=== PATIENT | female | born 1950 | race Caucasian/White ===

== ENCOUNTER 2021-03-21 03:46 | Outpatient (CLI) | payer OTHER, SELFPAY ==
[2021-03-21 16:00] LABS: Abs Immature Grans 0.01 10^3/uL (0.0-0.06); Absolute Basophil Count 0.02 10^3/uL (0.0-0.2); Absolute Lymphocyte Count 2.62 10^3/uL (1.2-3.4); Absolute Monocyte Count 0.47 10^3/uL (0.1-0.8); Basophils % 0.3; Eosinophils % 1.4; HCT 42.8 % (36.0-46.0); HGB 13.5 g/dL (11.2-15.7); Immature Grans % 0.1; Lymphocytes % 35.8; MCHC 31.5 % (32.0-36.0); Monocytes % 6.4; Nucleated RBC 0 %; Platelet Count 227 10^3/uL (130-400); RBC 4.65 10^6/uL (3.93-5.22); RDW 13.9 % (11.7-14.6); RDW-SD 47.2 fL; WBC 7.32 10^3/uL (4.4-10.8)
[2021-03-21 16:02] LABS: ESR 7 mm/hr (0-30)
[2021-03-21 17:20] LABS: ALT 21 U/L (14-59); AST 14 U/L (15-37); Alkaline Phosphatase 76 U/L (46-116); Anion Gap 7.8 mmol/L (3-11); BUN 17 mg/dL (7-18); Bilirubin, Total 0.4 mg/dL (0.2-1.0); C-Reactive Protein 0.11 mg/dL (0.0-0.3); CO2 30.2 mmol/L (21.0-32.0); CREATININE 1.1 mg/dL (0.55-1.02); Calcium 9.1 mg/dL (8.5-10.1); Chloride 106 mmol/L (98-107); Glucose 89 mg/dL (74-106); Magnesium 2.3 mg/dL (1.8-2.4); PHOSPHORUS 3.8 mg/dL (2.6-4.7); Potassium 4.3 mmol/L (3.5-5.1); Sodium 144 mmol/L (136-145); TSH (W/Ref FT4) 3.43 uIU/mL (0.36-3.74); Total Protein 7.4 g/dL (6.4-8.2)
[2021-03-22 13:57] LABS: FREE T4 0.87 ng/dL (0.76-1.46)
[2021-03-22 16:28] LABS: Rheumatoid Factor <8.6 IU/mL (<12.0)
[2021-03-23 10:37] LABS: Lyme Ab w Rflx to Lyme Confirm Negative (Negative)
[2021-03-23 12:59] LABS: Albumin 61.3 % (55.8-66.1); Total Protein 7.2 g/dL (6.3-8.2)
[2021-03-23 16:11] LABS: ANA Interpretation Positive (Negative)
== END 2021-03-21 03:47 | disposition home or self-care (01) ==
DX: M79.7 Fibromyalgia (principal)
CPT/HCPCS: 36415; 80053; 85652; 83735; 84100; 84165; 84439; 84443; 85025; 86038; 86140; 86431; 86618

== ENCOUNTER → 2021-07-14 01:40 | Outpatient (CLI) | payer MEDICARE, MEDICAID, SELFPAY ==
--- NOTE | 2021-07-14 12:56 | DI.RAD_ITS ---
Exam(s) XR ABDOMEN FLAT PLATE EXAM: XR ABDOMEN FLAT PLATE CLINICAL HISTORY: ABD PAIN R10.9, R/O KIDNEY STONES. TECHNIQUE: 2D digital imaging was performed. COMPARISON: No exams were available for comparison FINDINGS: AP supine view of the abdomen-pelvis reveals a nonspecific bowel gas pattern in the supine position. No obvious bowel obstruction. Fecal material seen throughout the colon judged as moderate amount. Phlebolith noted in left side of the pelvis. Two small calcific densities seen in the right upper qu adrant above the 12th rib. These may be in the right kidney or gallbladder. No calcifications seen on the left side. There are surgical clips seen in the pelvis. Regional bones unremarkable. IMPRESSION: DATA REPOSITORY: RADIATION DOSE DELIVERED:
--- NOTE | 2021-07-14 12:56 | DI.RAD_ITS ---
Exam(s) XR LUMBAR SPINE COMP W FLEX/EX EXAM: XR LUMBAR SPINE COMP W FLEX/EX CLINICAL HISTORY: LOW BACK PAIN M54.50 R/O FX, METASTASIS. TECHNIQUE: 2D digital imaging was performed. COMPARISON: No exams were available for comparison FINDINGS: There is no evidence of fracture or listhesis. No pars defects. No significant disc space narrowing . No prominent scoliosis. Sacroiliac joints appear unremarkable. No osseous lesions. IMPRESSION: DATA REPOSITORY: RADIATION DOSE DELIVERED:
== END ==
PROVIDERS: Visit Provider Pain Medicine Interventional Pain Medicine
DX: R10.9 Unspecified abdominal pain (principal); M54.50 Low back pain, unspecified
CPT/HCPCS: 72114; 74018

== ENCOUNTER 2021-07-14 11:50 | Outpatient (CLI) | payer MEDICARE, MEDICAID, SELFPAY ==
[2021-07-14 13:26] LABS: Abs Immature Grans 0.01 10^3/uL (0.0-0.06); Absolute Basophil Count 0.01 10^3/uL (0.0-0.2); Absolute Eosinophil Count 0.08 10^3/uL (0.0-0.7); Absolute Lymphocyte Count 1.84 10^3/uL (1.2-3.4); Absolute Monocyte Count 0.38 10^3/uL (0.1-0.8); Absolute Neutrophil Count 3.12 10^3/uL (1.2-6.7); Basophils % 0.2; Eosinophils % 1.5; HCT 40.3 % (36.0-46.0); HGB 13.1 g/dL (11.2-15.7); Immature Grans % 0.2; Lymphocytes % 33.8; MCH 29.4 pg (27.0-33.0); MCHC 32.5 % (32.0-36.0); MCV 90.4 fL (80-95); MPV 10.6 fL (8.0-11.0); Neutrophils % 57.3; Nucleated RBC 0 %; Platelet Count 204 10^3/uL (130-400); RBC 4.46 10^6/uL (3.93-5.22); RDW 13.4 % (11.7-14.6); WBC 5.44 10^3/uL (4.4-10.8)
[2021-07-14 14:26] LABS: ALT 18 U/L (14-59); AST 13 U/L (15-37); Albumin 3.8 g/dL (3.4-5.0); Alkaline Phosphatase 75 U/L (46-116); Anion Gap 4.8 mmol/L (3-11); BUN 14 mg/dL (7-18); Bilirubin, Total 0.5 mg/dL (0.2-1.0); CO2 33.2 mmol/L (21.0-32.0); CREATININE 0.8 mg/dL (0.55-1.02); Calcium 9.2 mg/dL (8.5-10.1); Chloride 102 mmol/L (98-107); Glucose 93 mg/dL (74-106); Potassium 4.6 mmol/L (3.5-5.1); Sodium 140 mmol/L (136-145)
== END 2021-07-14 11:51 | disposition home or self-care (01) ==
LOC: LBO 07-15 11:54
PROVIDERS: Visit Provider Pain Medicine Interventional Pain Medicine
DX: R10.9 Unspecified abdominal pain (principal)
CPT/HCPCS: 36415; 80053; 85025

== ENCOUNTER → 2021-08-16 00:55 | Outpatient (CLI) | payer MEDICARE, MEDICAID, SELFPAY ==
--- NOTE | 2021-08-16 | DI.US_ITS ---
Exam(s) US ABDOMEN LIMITED EXAM: US ABDOMEN LIMITED CLINICAL HISTORY: ABD PAIN, R10.9 TECHNIQUE: Ultrasound performed using standard protocol. COMPARISON: No exams were available for comparison FINDINGS: Patient states that she has a known benign pancreatic head mass, there is a questionable hypoechoic a jeffrey in the pancreatic head measuring about 19 x 11 x 17 millimeters, this is not ideally visualized d ue to overlying bowel gas. MR examination of the pancreas would be more accurate in identifying and characterizing a pancreatic head mass. Otherwise the pancreas is unremarkable in appearance except f or mildly dilated pancreatic duct at 5 millimeters. Liver is unremarkable in appearance. There is no cholelithiasis or biliary dilatation. Right kidney contains an approximately 4 millimeter in diameter nonobstructing stone in the mid to inferior pole. IMPRESSION: No evidence of cholelithiasis. Nonobstructing right renal calculus noted. Possible pancreatic head mass, reportedly known according to the patient. We will attempt to obtain prior examinations for comparison. Pancreatic MRI would be recommended for evaluation of possible pa ncreatic head mass if prior studies cannot be obtained or are non contributory. DATA REPOSITORY:
== END ==
PROVIDERS: Visit Provider Pain Medicine Interventional Pain Medicine
DX: R10.9 Unspecified abdominal pain (principal); N20.0 Calculus of kidney
CPT/HCPCS: 76705

== ENCOUNTER 2021-10-19 00:32 | Outpatient (CLI) | payer MEDICARE, MEDICAID, SELFPAY ==
--- NOTE | 2021-10-19 14:00 | DI.US_ITS ---
Exam(s) US THYROID EXAM: US THYROID CLINICAL HISTORY: NONTOXIC SINGLE THYROID NODULE, E04.1, PALPABLE IN LT NECK. TECHNIQUE: Ultrasound thyroid performed using standard protocol. COMPARISON: US US ABDOMEN LIMITED from 08/16/2021 FINDINGS: Both thyroid lobes as well as the isthmus exhibit normal size and normal echo architecture with the e xception of the focal findings described below. RIGHT THYROID LOBE: Exhibits normal size, measuring 0.9 cm AP x 0.8 cm wide by 4 cm craniocaudal. Th ere are 3 benign small findings in the right lobe, all having the appearance of benign colloid cysts, the largest measuring 4 millimeters. There are no concerning solid nodules in the right lobe. ISTHMUS: Normal thickness. There are no nodules in the isthmus. LEFT THYROID LOBE: Exhibits normal size. Measures 0.7 cm AP x 1.1 wide x 3.6 cm craniocaudal There 3 findings in the left lobe. In the mid and inferior aspects there are 2 small benign colloid cysts, the larger measuring 4 millimeter. Towards the superior aspect of the left lobe there is a well-defined solid nodule measuring 9 x 6 x 8 millimeters. This nodule is solid (2 points) This nodule is relatively isoechoic compared surrounding parenchyma (1 point) In the transverse plane this nodule is wider than taller (0 points) Margins are smooth (0 points) This nodule does not contain punctate echogenic foci nor other calcifications (0 point) Therefore, total points for this nodule =3 and therefore this nodule registers as a TiRads 3 This does not require biopsy as it measures less than 1.5 cm. It can be followed in 1 year LYMPH NODES: There is no significant adenopathy. IMPRESSION: 1. Thyroid gland is not enlarged. 2. There are few small bilateral benign colloid cysts, the largest measuring 4 millimeters. 3. There is a single solid nodule which is in the upper half of the left thyroid lobe which measures 9 x 6 x 8 millimeter and which classifies as a TiRads 3 nodule and can be followed with repeat ultras ound in 1 year. 4. There is no significant adenopathy DATA REPOSITORY:
== END 2021-10-19 00:52 ==
PROVIDERS: Visit Provider Pain Medicine Interventional Pain Medicine
DX: E04.1 Nontoxic single thyroid nodule (principal); E07.89 Other specified disorders of thyroid
CPT/HCPCS: 76536

== ENCOUNTER 2021-11-07 00:18 | Outpatient (CLI) | payer MEDICARE, MEDICAID, SELFPAY ==
--- NOTE | 2021-11-07 | DI.MRI_ITS ---
Exam(s) MR ABDOMEN WO EXAM: MR ABDOMEN WO CLINICAL HISTORY: CYST OF PANCREAS,F/U ABNL IMAGING,R93.5,PANCREATIC MASS,K86.2 TECHNIQUE: Multiplanar multisequence MRI was performed with both pre and post contrast infused seque nces. Contrast injected sequences were performed following IV injection of cc of Dotarem. 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 This study was performed without IV contrast, apparently as per request. VISUALIZED LUNG BASES: No pleural effusions evident. There is no ascites evident in the upper abdomen. LIVER: Liver size is normal. There is a small benign 7 millimeters cyst in the most superior aspect of the liver just anterior to the uppermost intrahepatic IVC. This is unchanged from the 2012 CT sca n. There are no other cysts nor more ominous hepatic lesions identified. BILIARY: There is no obvious gallbladder pathology. No gallbladder stones nor gallbladder wall edema . Gallbladder lumen size is similar to 2012. The CBD is not dilated, measuring 6 millimeters.No sig nificant dilatation of intrahepatic ducts. PANCREAS: The previously described cystic pancreatic head mass is again noted and is associated with dilated pancreatic duct which is dilated out to the tail and measures up to 4.3 millimeters. On MRCP images pancreatic duct appears continuous with this mass. The mass is comprised of multiple clear c ystic components with the largest component measuring 1.4 x 1.4 cm and with total measurement being 2 .1 cm AP by 2.5 cm wide by 3.5 cm craniocaudal. The adjacent lower CBD measures 5 millimeter. Altho ugh does somewhat difficult to compare the MRI to a prior CT scan, it does appear that this mass has somewhat increased in size when compared to 10 years ago (April 2012). There does not appear to be obvious regional adenopathy. Stomach and adjacent duodenum appear unremarkable. No new mesenteric masses seen in the field of vie w. SPLEEN: Spleen is not enlarged and there are no intrasplenic lesions.Splenic and portal veins are pat ent ADRENALS: There are no significant adrenal masses. KIDNEYS: No solid renal masses. No hydronephrosis.Tiny cyst in the posterior cortex of the right kid hernesto measuring 4 millimeter is unchanged from 2012 ABDOMINAL AORTA: Not enlarged and there is no significant para-aortic adenopathy. ANTERIOR ABDOMINAL WALL/GI: There is no evidence of significant anterior abdominal wall hernia in the field of view of this study.Is no evidence of obvious bowel obstruction. OSSEOUS: There are no lytic osseous lesions in the field of view of this study. Visualized spinal canal within normal limits. IMPRESSION: 1. 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 There are no other focal lesions seen in the pancreas. No peripancreatic fluid melisa ections. No obvious regional lymphadenopathy and no evidence of obvious metastatic disease in the li devyn. There is a stable 7 millimeter benign cyst in the most superior aspect of the liver which is un changed from the prior 2012 CT scan. 2. CBD diameter remains upper normal and there is no dilatation of intrahepatic ducts. No evidence o f [place] gallbladder. DATA REPOSITORY:
== END 2021-11-07 00:38 ==
PROVIDERS: Visit Provider Pain Medicine Interventional Pain Medicine
DX: K86.2 Cyst of pancreas (principal); R93.5 Abnormal findings on diagnostic imaging of other abdominal regions, including retroperitoneum; K76.89 Other specified diseases of liver; K86.89 Other specified diseases of pancreas; R10.30 Lower abdominal pain, unspecified
CPT/HCPCS: 74181

== ENCOUNTER 2021-11-07 01:41 | Outpatient (CLI) | payer MEDICARE, MEDICAID, SELFPAY ==
[2021-11-07 15:10] LABS: Abs Immature Grans 0.02 10^3/uL (0.0-0.06); Absolute Basophil Count 0.02 10^3/uL (0.0-0.2); Absolute Eosinophil Count 0.06 10^3/uL (0.0-0.7); Absolute Lymphocyte Count 2.54 10^3/uL (1.2-3.4); Absolute Monocyte Count 0.52 10^3/uL (0.1-0.8); Absolute Neutrophil Count 3.11 10^3/uL (1.2-6.7); Basophils % 0.3; HCT 41.8 % (36.0-46.0); HGB 13.3 g/dL (11.2-15.7); Immature Grans % 0.3; Lymphocytes % 40.5; MCH 29.3 pg (27.0-33.0); MCHC 31.8 % (32.0-36.0); MCV 92.1 fL (80-95); MPV 10.5 fL (8.0-11.0); Monocytes % 8.3; Neutrophils % 49.6; Nucleated RBC 0 %; Platelet Count 207 10^3/uL (130-400); RBC 4.54 10^6/uL (3.93-5.22); RDW 13.5 % (11.7-14.6); RDW-SD 46.5 fL; WBC 6.27 10^3/uL (4.4-10.8)
[2021-11-07 16:05] LABS: Albumin 3.8 g/dL (3.4-5.0); Alkaline Phosphatase 84 U/L (46-116); BUN 18 mg/dL (7-18); Bilirubin, Total 0.5 mg/dL (0.2-1.0); CREATININE 0.8 mg/dL (0.55-1.02); Calcium 8.9 mg/dL (8.5-10.1); Glucose 90 mg/dL (74-106); PHOSPHORUS 3.7 mg/dL (2.6-4.7); Sodium 138 mmol/L (136-145)
[2021-11-07 16:06] LABS: ALT 23 U/L (14-59); AST 14 U/L (15-37); Anion Gap 5.1 mmol/L (3-11); Bilirubin, Direct 0.1 mg/dL (0.0-0.2); CO2 30.9 mmol/L (21.0-32.0); Chloride 102 mmol/L (98-107); Magnesium 2.3 mg/dL (1.8-2.4); Potassium 4.3 mmol/L (3.5-5.1); TSH 3.26 uIU/mL (0.36-3.74)
[2021-11-07 16:21] LABS: T4 8.7 ug/mL (4.7-13.3)
== END 2021-11-07 01:42 | disposition home or self-care (01) ==
LOC: LBO 01:42
PROVIDERS: Visit Provider Pain Medicine Interventional Pain Medicine
DX: R53.83 Other fatigue (principal)
CPT/HCPCS: 36415; 80053; 80076; 83735; 84100; 84436; 84443; 85025

== ENCOUNTER 2023-01-26 00:30 | Outpatient (CLI) | payer MEDICARE, MEDICAID, SELFPAY ==
--- NOTE | 2023-01-26 13:41 | DI.RAD_ITS ---
Exam(s) XR SHOULDER RT COMPLETE 2+V EXAM: XR SHOULDER RT COMPLETE 2+V CLINICAL HISTORY: RT SHOULDER PAIN,M25.511. TECHNIQUE: 2D digital imaging was performed. COMPARISON: No exams were available for comparison FINDINGS: Five views: No evidence of fracture or dislocation. No abnormal soft tissue densities in the subacromial space a nd the subacromial space does not appear diminished. There are mild degenerative changes glenohumera l joint. Os acromiale is noted. Clavicle appears unremarkable. Coracoid process unremarkable. IMPRESSION: Mild degenerative changes. Os acromiale evident. DATA REPOSITORY: RADIATION DOSE DELIVERED:
--- NOTE | 2023-01-26 13:41 | DI.RAD_ITS ---
Exam(s) XR CERVICAL SP COMP W FLEX/EXT EXAM: XR CERVICAL SP COMP W FLEX/EXT CLINICAL HISTORY: SEVERE NECK PAIN,RT,M54.2. TECHNIQUE: 2D digital imaging was performed. COMPARISON: No exams were available for comparison FINDINGS: Nine views: Is no evidence of acute fracture, listhesis, nor offset of the spinal laminar line. There is no list hesis with flexion and extension. There is moderate disc space narrowing at C5-6 level. The other disc spaces exhibit normal height. There are bilateral Luschka joint osteophytes at C5-6 level. Facet joints appear un remarkable with minimal degenerative changes. No cervical ribs evident. No osseous lesions. IMPRESSION: Evidence of degenerative disc disease at C5-6 level. DATA REPOSITORY: RADIATION DOSE DELIVERED:
== END 2023-01-26 00:50 ==
PROVIDERS: Visit Provider Pain Medicine Interventional Pain Medicine
DX: M50.322 Other cervical disc degeneration at C5-C6 level (principal); M25.511 Pain in right shoulder
CPT/HCPCS: 72052; 73030

== ENCOUNTER 2023-02-23 17:11 | Emergency (ER) | payer MEDICARE, MEDICAID, SELFPAY ==
[2023-02-23 17:13] VITALS: BP 136/67; PULSE 85; RESP 14; TEMP 36.8; O2SAT 100
--- NOTE | 2023-02-23 17:42 | ED.GENADUL_ITS ---
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 [place] [facility] [place] Medical Decision Making This is a 72-year-old female patient with a history of lymph node resection in her right groin area who presents with swelling and pain to the area consistent with previous infections. She states she typically gets Rocephin 1 g IM for 3 days with resolution of her symptoms. She presents here requesting that. Medical Records Medical records reviewed: Yes I reviewed the patient's medical records. HPI General Mode of arrival: ambulatory . Date/Time Provider Initiated Documentation: 02/23/23 17:19 . Limitations to Documentation: no limitations . Information obtained by: patient . HPI Narrative: This is a 72-year-old female patient on no medication with a past medical hist ory of lymph node resection many years ago reportedly in [facility] reportedly because they were continually inflamed who states post surgery she has had multiple flares that require treatment with ceftriaxone IM for 3 days. She states that this is a typical flare for her and presents here requesting ceftriaxone. She denies any fever chills nausea vomiting abdominal pain. She attributes her flare to strenuous work she did yesterday around her house. 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 MONTY: 4 Review of Systems All systems reviewed & are unremarkable except as noted in HPI and below PFSH All Active Problems (Updated 02/23/23 @ 17:50 by Jagruti Coleman, ZACH) Cellulitis (Acute) Social History Smoking risk assessment performed?: No Exam Const General: cooperative, healthy appearing, comfortable and no acute distress Nutritional Appearance: average body habitus Orientation: alert, awake and oriented x3 HENMT Head: normal to inspection, normocephalic and atraumatic Mouth: oral mucosae normal Chest Chest: normal inspection of the chest Resp Effort & Inspection: normal respiratory effort Cardio Rate: regular rate Rhythm: regular rhythm GI Inspection: normal to inspection External Female Exam: erythema, external swelling, lesion (Right labia with a swollen lesion slightly erythematous), no ecchymosis and other (No discharge or drainage) Skin Lesions: lesion noted Neuro General: patient alert, patient awake and patient oriented x3 Cognition: normal cognition Speech: speech normal Gait: normal gait Motor: muscle tone normal throughout Sensory Exam: no sensory deficits noted Extrem General: normal to inspection and full ROM Course Vital Signs Vital signs: Vital Signs Temperature 36.8 C 02/23/23 17:13 Pulse 85 02/23/23 17:13 Respiratory Rate 14 02/23/23 17:13 Blood Pressure 136/67 02/23/23 17:13 Pulse Oximetry 100 02/23/23 17:13 Temperature 36.8 C 02/23/23 17:13 Temperature Source Skin 02/23/23 17:13 Pulse 85 02/23/23 17:13 Respiratory Rate 14 02/23/23 17:13 Blood Pressure 136/67 02/23/23 17:13 Blood Pressure Position Sitting 02/23/23 17:13 Pulse Oximetry 100 02/23/23 17:13 Oxygen Delivery Method Room Air 02/23/23 17:13 Oxygen Flow Rate 0 02/23/23 17:13 Pain Level 7 02/23/23 17:13
[2023-02-23] MEDS: cefTRIAXone 1 GM VIAL IM (17:54)
== END 2023-02-23 18:44 | disposition home or self-care (01) ==
PROVIDERS: Emergency Provider Nurse Practitioner Acute Care
DX: L03.314 Cellulitis of groin (principal)
CPT/HCPCS: 96372; 99284; J0696

== ENCOUNTER 2023-02-24 12:27 | Outpatient (RCR) | payer MEDICARE, MEDICAID, SELFPAY ==
[2023-02-24] MEDS: Lidocaine 1% Multi-Dose 10 ML VIAL 2.1 ML IM (12:45)
[2023-02-24] MEDS: cefTRIAXone 1 GM VIAL IM (12:45)
== END 2023-02-24 12:28 | disposition home or self-care (01) ==
LOC: INF 12:27
PROVIDERS: Visit Provider Nurse Practitioner Acute Care
DX: L03.90 Cellulitis, unspecified (principal)
CPT/HCPCS: 96365; 96372; 96375; J0696

== ENCOUNTER 2023-02-25 12:01 | Outpatient (RCR) | payer MEDICARE, MEDICAID, SELFPAY ==
[2023-02-25] MEDS: cefTRIAXone 1 GM VIAL IM (13:45)
[2023-02-25] MEDS: Lidocaine 1% Multi-Dose 10 ML VIAL 2.1 ML IM (13:45)
== END 2023-03-23 23:59 | disposition home or self-care (01) ==
LOC: INF 12:01
PROVIDERS: Visit Provider Nurse Practitioner Acute Care
DX: L03.90 Cellulitis, unspecified (principal)
CPT/HCPCS: 96372; J0696

== ENCOUNTER → 2023-06-19 01:10 | Outpatient (CLI) | payer MEDICARE, MEDICAID, SELFPAY ==
--- NOTE | 2023-06-19 | DI.MRI_ITS ---
Exam(s) MR CERVICAL SPINE WO EXAM: MR CERVICAL SPINE WO CLINICAL HISTORY: CHRONIC NECK PAIN, XRAY SHOWED DDD TECHNIQUE: Multiplanar multisequence MRI of the cervical spine was performed without intravenous con trast. COMPARISON: CR XR CERVICAL SP COMP W FLEX/EXT from 01/26/2023 FINDINGS: BONES: Vertebral body heights are maintained. Intervertebral disc spaces are normal. Alignment is nor mal. Bone marrow signal intensity is within normal limits. CERVICAL CORD: Craniovertebral junction is unremarkable. The cervical cord is normal size and signal intensity. There may be a small arachnoid cyst in the posterior fossa measuring 1 cm maximally. SOFT TISSUES: Unremarkable. C2-3: No disc herniation or bulge is identified. No significant central spinal canal or neural forami nal stenosis. C3-4: No disc herniation or bulge is identified. No significant central spinal canal or neural forami nal stenosis C4-5: No disc herniation or bulge is identified. No significant central spinal canal or neural forami nal stenosis C5-6: There is mild prominence of the osteophyte disc complex. There is no significant central spina l canal stenosis. There is moderate bilateral neural foraminal stenosis. C6-7: No disc herniation or bulge is identified. No significant central spinal canal or neural forami nal stenosis C7-T1: No disc herniation or bulge is identified. No significant central spinal canal or neural rosaline inal stenosis IMPRESSION: Degenerative changes at C5-C6 resulting in moderate bilateral neural foraminal stenosis. DATA REPOSITORY:
--- NOTE | 2023-06-19 | DI.MRI_ITS ---
Exam(s) MR UPPER JOINT RT WO EXAM: MR UPPER JOINT RT WO CLINICAL HISTORY: RT SHOULDER PAIN, XR SHOWED ARTHRITIS,? ROTATOR CUFF MARILU. TECHNIQUE: Multiplanar multisequence MRI was performed. COMPARISON: CR XR SHOULDER RT COMPLETE 2+V from 01/26/2023 FINDINGS: BONES: There is no fracture or contusion pattern. There is an os acromiale. JOINTS: Degenerative changes are seen at the acromioclavicular joint. The glenohumeral joint is norm al. TENDONS: Supraspinatus: There is a full-thickness supraspinatus tendon tear at the insertion site anteriorly. Infraspinatus: There is tendinosis of the infraspinatus tendon. Subscapularis: There is tendinosis of the subscapularis tendon. There is hyperintense signal seen in the superior aspect of the tendon at its insertion site suggestive of a partial intrasubstance tear. Teres Minor: Unremarkable. Biceps and Ingalls: Unremarkable. MUSCLES: There is mild fatty atrophy of the supraspinatus muscle. GLENOID LABRUM: Unremarkable on this noncontrast examination. SOFT TISSUES: Unremarkable. LIGAMENTS: Unremarkable. OTHER: There is fluid seen in the subacromial subdeltoid bursa. IMPRESSION: 1. Full-thickness supraspinatus tendon tear at its insertion site on the greater tuberosity anteriorl y. 2. Findings suggestive of a intrasubstance partial tear of the subscapularis tendon. 3. Degenerative changes at the acromioclavicular joint with an os acromiale. 4. Fluid seen in the subacromial subdeltoid bursa. DATA REPOSITORY:
== END ==
PROVIDERS: Visit Provider Pain Medicine Interventional Pain Medicine
DX: M99.61 Osseous and subluxation stenosis of intervertebral foramina of cervical region (principal); M50.122 Cervical disc disorder at C5-C6 level with radiculopathy
CPT/HCPCS: 72141; 73221

== ENCOUNTER → 2023-09-20 00:12 | Outpatient (CLI) | payer MEDICARE, MEDICAID, SELFPAY ==
--- NOTE | 2023-09-20 13:00 | DI.MRI_ITS ---
Exam(s) MR BRAIN WO EXAM: MR BRAIN WO CLINICAL HISTORY: OTALGIA H92.09PAIN OF EAR TECHNIQUE: Multiplanar multisequence MRI of the brain was performed. COMPARISON: No exams were available for comparison FINDINGS: VENTRICLES AND EXTRA AXIAL SPACES: Normal in size and morphology for the patient's age. MIDLINE SHIFT: None. CEREBRAL PARENCHYMA: No focus of restricted diffusion to suggest acute infarct. No space-occupying le amy identified. No significant white matter changes. HEMORRHAGE: None. BRAINSTEM/CEREBELLUM: Normal. VISUALIZED PARANASAL SINUSES/MASTOIDS:Clear. No abnormality identified in the region of the interna l or external auditory canals. Vasculature: Normal flow void. PITUITARY GLAND: Unremarkable. ORBITS: Unremarkable. IMPRESSION: Unremarkable MRI of the brain. DATA REPOSITORY:
== END ==
PROVIDERS: Visit Provider Pain Medicine Interventional Pain Medicine
DX: H92.09 Otalgia, unspecified ear (principal)
CPT/HCPCS: 70551

== ENCOUNTER 2024-07-07 01:20 | Outpatient (CLI) | payer MEDICARE, MEDICAID, SELFPAY ==
--- NOTE | 2024-07-07 | DI.US_ITS ---
Exam(s) US THYROID EXAM: US THYROID CLINICAL HISTORY: NONTOXIC SINGLE THYROID NODULE, E04.1. TECHNIQUE: Ultrasound thyroid performed using standard protocol. COMPARISON: US US THYROID from 10/19/2021 FINDINGS: ISTHMUS: 1.6 mm RIGHT LOBE: Size: 3.9 x 1.0 x 1.1 cm Echogenicity: Normal. Vascularity: Normal. Nodules: No suspicious nodules are seen to require follow-up or aspiration. LEFT LOBE: Size: 3.9 x 0.9 x 1.3 cm Echogenicity: Normal. Vascularity: Normal. Nodules: There is a stable solid and isoechoic nodule seen in the upper pole measuring 0.9 cc by 0.7 AP by 0.8 transverse cm. This is a TI rads level 3 nodule. Due to its size, no follow-up is recomme nded. OTHER FINDINGS: None. IMPRESSION: Stable left thyroid nodule measuring 0.9 x 0.7 x 0.8 cm. This is a TI rads level 3 nodule. Due to i ts size, no follow-up is recommended. DATA REPOSITORY:
== END 2024-07-07 01:40 ==
LOC: DI 01:20
PROVIDERS: Visit Provider Pain Medicine Interventional Pain Medicine
DX: E04.1 Nontoxic single thyroid nodule (principal)
CPT/HCPCS: 76536

== ENCOUNTER 2024-07-07 03:10 | Outpatient (CLI) | payer MEDICARE, MEDICAID, SELFPAY ==
[2024-07-07 12:48] LABS: ESR 8 mm/hr (0-30)
[2024-07-07 12:49] LABS: Abs Immature Grans 0.02 10^3/uL (0.0-0.06); Absolute Basophil Count 0.02 10^3/uL (0.0-0.2); Absolute Eosinophil Count 0.08 10^3/uL (0.0-0.7); Absolute Lymphocyte Count 1.53 10^3/uL (1.2-3.4); Absolute Neutrophil Count 4.12 10^3/uL (1.2-6.7); Basophils % 0.3 %; Eosinophils % 1.3 %; HCT 41.8 % (36.0-46.0); HGB 13.5 g/dL (11.2-15.7); Immature Grans % 0.3 %; Lymphocytes % 24.4 %; MCH 29.7 pg (27.0-33.0); MCHC 32.3 % (32.0-36.0); MCV 92 fL (80-95); Neutrophils % 65.7 %; Platelet Count 223 10^3/uL (130-400); RBC 4.54 10^6/uL (3.93-5.22); RDW 13.9 % (11.7-14.6); RDW-SD 47.3 fL; WBC 6.27 10^3/uL (4.4-10.8)
[2024-07-07 13:17] LABS: ALT 25 U/L (14-59); AST 16 U/L (15-37); Albumin 3.5 g/dL (3.4-5.0); Alkaline Phosphatase 91 U/L (46-116); Anion Gap 5.4 mmol/L (3-11); BUN 12 mg/dL (7-18); Bilirubin, Total 0.38 mg/dL (0.2-1.0); CO2 31.6 mmol/L (21.0-32.0); Calcium 9.5 mg/dL (8.5-10.1); Chloride 107 mmol/L (98-107); Estimated GFR 59.49 (mL/min/1.73m2); FREE T4 0.94 ng/dL (0.76-1.46); Glucose 112 mg/dL (74-106); Potassium 4.7 mmol/L (3.5-5.1); Sodium 144 mmol/L (136-145); TSH 2.36 uIU/mL (0.36-3.74); Total Protein 7.4 g/dL (6.4-8.2)
[2024-07-07 13:18] LABS: C-Reactive Protein < 0.50 mg/dL (<or=0.5)
== END 2024-07-07 03:11 | disposition home or self-care (01) ==
PROVIDERS: Visit Provider Pain Medicine Interventional Pain Medicine
DX: R53.83 Other fatigue (principal)
CPT/HCPCS: 36415; 80053; 85652; 84439; 84443; 85025; 86140

== ENCOUNTER 2024-10-21 16:52 | Emergency (ER) | payer MEDICARE, MEDICAID, SELFPAY ==
[2024-10-21 17:27] VITALS: BP 151/69; PULSE 129; RESP 16; TEMP 36.6; O2SAT 98
--- NOTE | 2024-10-21 18:15 | RT.EKG_ITS ---
APPROVED REPORT Exam: Resting ECG Reason for Exam: tachy Patient Location: E HR:73 bpm ECG Measurements Heart Rate 73 AXIS RI 147 P 73 QRSd 68 QRS 51 QT 369 T 67 QTc 407 Conclusion Sinus rhythm...normal P axis, V-rate 60- 99
--- NOTE | 2024-10-21 18:15 | DI.CT_ITS ---
Exam(s) CT HEAD NECK W EXAM: CT HEAD NECK W CLINICAL HISTORY: right mastoid and right gnosticism pain, otalgia. TECHNIQUE: Imaging Protocol: Axial computed tomography images with coronal and sagittal reformatted images were created and reviewed. CONTRAST MATERIAL: Intravenous: Omnipaque 350 contrast volume:100 mL COMPARISON: No exams were available for comparison FINDINGS: Ventricles and Extra axial spaces: Normal in size and morphology for the patient's age. Hemorrhage: None. Cerebral parenchyma: Evidence of an acute territorial infarct. No enhancing masses are seen. Enhancement: No suspicious enhancement. [place]: Unremarkable. Midline shift: None. Brainstem/Cerebellum: Normal. Calvarium: Normal. Visualized Paranasal sinuses/Mastoids: Clear. Orbits and orbital soft tissues: Within normal limits. Visualized paranasal sinuses: Within normal limits. Nasopharynx: Within normal limits. Oropharynx: Within normal limits. Hypopharynx: Within normal limits. Larynx: Within normal limits. Retropharyngeal space: Within normal limits. Parotids/submandibular: Within normal limits. Thyroid gland: There is a tiny hypodensity in the left lobe of the thyroid gland. It is too small f or further characterization. No follow-up is recommended. Lymphadenopathy: There is scattered lymph nodes seen along the level one to level three all measurin g less than 8 mm in short axis diameter which are physiologic in nature. Trachea: Within normal limits. Lung apices: Within normal limits. Bones: Within normal limits for the patient's age. Carotids/Jugular: Within normal limits. Soft tissues: Within normal limits. IMPRESSION: Unremarkable CT scan of the head and neck. RADIATION DOSE DELIVERED: 1,957.08mGy.cm Total DLP DATA REPOSITORY: All CT scans at this facility are submitted to the National Radiology Data Registry (NRDR) Dose Index Registry (DIR) with the [employer] ([employer]). RADIATION OPTIMIZATION: All CT scans at this facility use at least one of these dose optimization te chniques: automated exposure control; mA and/or kV adjustment per patient size (includes targeted exa ms where dose is matched to clinical indication); or iterative reconstruction.
[2024-10-21] MEDS: MORPHine IR 15 MG TAB PO (19:05)
[2024-10-21 19:17] VITALS: BP 138/74; PULSE 99
[2024-10-21 19:24] LABS: ESR 19 mm/hr (0-30)
[2024-10-21 19:29] LABS: Abs Immature Grans 0.03 10^3/uL (0.0-0.06); Absolute Basophil Count 0.03 10^3/uL (0.0-0.2); Absolute Eosinophil Count 0.03 10^3/uL (0.0-0.7); Absolute Neutrophil Count 7.93 10^3/uL (1.2-6.7); Basophils % 0.3 %; Eosinophils % 0.3 %; HCT 47.9 % (36.0-46.0); HGB 15.7 g/dL (11.2-15.7); Immature Grans % 0.3 %; Lymphocytes % 23.6 %; MCH 29.6 pg (27.0-33.0); MCHC 32.8 % (32.0-36.0); MCV 90 fL (80-95); MPV 11.3 fL (8.0-11.0); Monocytes % 5.3 %; Neutrophils % 70.2 %; Platelet Count 260 10^3/uL (130-400); RBC 5.31 10^6/uL (3.93-5.22); RDW 14.1 % (11.7-14.6); RDW-SD 46.8 fL; WBC 11.29 10^3/uL (4.4-10.8)
[2024-10-21 19:35] LABS: Absolute Lymphocyte Count 2.66 10^3/uL (1.2-3.4)
[2024-10-21 19:37] LABS: ALT 22 U/L (14-59); AST 17 U/L (15-37); Albumin 4.3 g/dL (3.4-5.0); Alkaline Phosphatase 101 U/L (46-116); Anion Gap 10.3 mmol/L (3-11); BUN 13 mg/dL (7-18); Bilirubin, Total 0.62 mg/dL (0.2-1.0); CO2 28.7 mmol/L (21.0-32.0); CREATININE 0.9 mg/dL (0.55-1.02); Calcium 10.1 mg/dL (8.5-10.1); Chloride 105 mmol/L (98-107); Glucose 98 mg/dL (74-106); Potassium 3.6 mmol/L (3.5-5.1); Sodium 144 mmol/L (136-145); Total Protein 8.5 g/dL (6.4-8.2)
[2024-10-21 19:49] LABS: Magnesium 2.3 mg/dL (1.8-2.4); TSH (W/Ref FT4) 1.86 uIU/mL (0.36-3.74)
[2024-10-21 20:25] VITALS: BP 149/71; PULSE 68; TEMP 36.7; O2SAT 94
[2024-10-21] MEDS: oxyCODONE 10 MG TAB PO (21:10)
--- NOTE | 2024-10-21 21:51 | DI.VRAD_ITS ---
PROCEDURE INFORMATION: Exam: CT Head With Contrast Exam date and time: 10/21/2024 8:50 PM Age: 74 years old Clinical indication: Headache; Right mastoid and right sabianism pain, otalgia TECHNIQUE: Imaging protocol: Computed tomography of the head with intravenous contrast. Radiation optimization: All CT scans at this facility use at least one of these dose optimization techniques: automated exposure control; mA and/or kV adjustment per patient size (includes targeted exams where dose is matched to clinical indication); or iterative reconstruction. Contrast material: [id number]; Contrast volume: 100 ml; Contrast route: INTRAVENOUS (IV); COMPARISON: MR BRAIN WO 09/20/2023 12:38 PM FINDINGS: Brain: Unremarkable white matter. No mass effect. No abnormal enhancing lesions. Cerebral ventricles: Unremarkable. No ventriculomegaly. Bones/joints: Unremarkable. No acute fracture. Paranasal sinuses: Visualized sinuses are unremarkable. No fluid levels. Mastoid air cells: Visualized mastoid air cells are well aerated. Soft tissues: Unremarkable. IMPRESSION: No acute intracranial abnormality. PROCEDURE INFORMATION: Exam: CT Neck With Contrast Exam date and time: 10/21/2024 8:50 PM Age: 74 years old Clinical indication: Headache; Right mastoid and right sabianism pain, otalgia TECHNIQUE: Imaging protocol: Computed tomography of the neck with contrast. Radiation optimization: All CT scans at this facility use at least one of these dose optimization techniques: automated exposure control; mA and/or kV adjustment per patient size (includes targeted exams where dose is matched to clinical indication); or iterative reconstruction. Contrast material: [id number]; Contrast volume: 100 ml; Contrast route: INTRAVENOUS (IV); COMPARISON: MR CERVICAL SPINE WO 06/19/2023 12:42 PM FINDINGS: Salivary glands: Normal. Glands are normal in size. Pharynx: Unremarkable. No significant tonsillar enlargement. Larynx: Unremarkable. Epiglottis is normal. Thyroid: Normal. No enlarged or calcified nodules. Trachea: Visualized trachea is unremarkable. Lungs: Unremarkable as visualized. Lymph nodes: Unremarkable. No lymphadenopathy. Bones/joints: Unremarkable. No acute fracture. Soft tissues: Unremarkable. No significant soft tissue swelling. IMPRESSION: No acute findings. Dictated and Authenticated by: Carissa Ramos MD. Orderin Linda Mckenna MD
[2024-10-21] MEDS: Normal Saline - Diluent 50 ML VIAL IJ (21:54)
[2024-10-21] MEDS: Omnipaque 350 MG/ML 100 ML BTL IJ (21:55)
[2024-10-21] MEDS: MORPHine IR 15 MG TAB, 4 TABS/BTL PO (22:14)
[2024-10-21] MEDS: Amox. 875/Clav. 125, 2 TABS/BTL 1 TAB PO (22:15)
[2024-10-21] MEDS: Dexamethasone 10 MG/ML VIAL IVP (22:16)
[2024-10-21 22:25] VITALS: BP 142/72; PULSE 70; RESP 16; O2SAT 95
--- NOTE | 2024-10-22 17:02 | W.ED.GENAD ---
Discharge Plan Disposition Patient Disposition: Home Condition: Stable Discharge Details Clinical Impression: Otitis media, Headache, Tinnitus, Scalp lesion Primary Care Provider: Unknown,Unknown ED Provider: Clarisa Mckeon Home Meds and New Rx's Prescriptions: New amoxicillin-pot clavulanate 875-125 mg tablet 1 tab PO BID Qty: 20 0RF fluconazole 150 mg tablet 150 mg PO ONCE Qty: 1 0RF No Action No Known Home Meds Discharge Instructions Instructions: Ear Infection ED Additional Instructions: Take the antibiotic as prescribed, yogurt daily while on antibiotic I given you a dose of Diflucan if you develop vaginal discharge Please return to develop fever, chills, or with any new or worsening complaints, persistent headache Am also listing the ENT to follow-up with in addition to placing on the list for referral to primary care physician You also need a referral to dermatology for the lesion on your forehead Referrals: Michael Weeks MD [ [facility]YSICIAN] - 2 days Discharge Data Discharge Date/Time-TO BE ENTERED AT DEPARTURE: 10/21/24 22:25 HPI General Date/Time Provider Initiated Documentation: 10/21/24 18:07. HPI Narrative: This 74-year-old female with history of pancreatic cyst presents with rash on her head and tinnitus in right ear versus worsening headache in her right ear. Patient denied dizziness neck pain or allover headache. She denies photophobia or phonophobia. She states she has a history of tinnitus but has never had associated symptoms like this. She states the pain is behind her ear as well. She states that tender to touch. She denies any trauma fracture or cancer. She is worried about the lesion on her forehead. She does not currently have a primary care physician as this person retired approximately 3 years ago. Related Data Home Medications ?Medication ?Instructions ?Recorded ?Confirmed Unknown [No Known Home Meds] 02/23/23 10/21/24 amoxicillin 875 mg-potassium 1 tab PO BID #20 tabs 10/21/24 clavulanate 125 mg tablet fluconazole 150 mg tablet 150 mg PO ONCE #1 tab 10/21/24 Previous Rx's ?Medication ?Instructions ?Recorded amoxicillin 875 mg-potassium 1 tab PO BID #20 tabs 10/21/24 clavulanate 125 mg tablet fluconazole 150 mg tablet 150 mg PO ONCE #1 tab 01/28/25 Allergies Allergy/AdvReac Type Severity Reaction Status Date / Time adhesive tape Allergy unknown Verified 10/21/24 17:35 ciprofloxacin (From Cipro) Allergy unknowm Verified 10/21/24 17:35 General Stated Complaint: EarProblem MONTY: 4 Exam Narrative Exam Narrative: Alert and oriented 74-year-old female in acute distress, holding her right side of her head, tenderness over her right oriental orthodox contracted TM, cone of light not intact, purulent anderson behind TM on right, mild mastoid tenderness, no COVID bruit, no meningismus, pupils equal round reactive to light and accommodation, cranial nerves II through XII intact, ambulatory with steady gait, cardiac rate rhythm regular,auscultation, no drainage from ear Course Vital Signs Vital signs: Vital Signs Temperature 36.6 C 10/21/24 17:27 Pulse 129 H 10/21/24 17:27 Respiratory Rate 16 10/21/24 17:27 Blood Pressure 151/69 H 10/21/24 17:27 Pulse Oximetry 98 10/21/24 17:27 Temperature 36.7 C 10/21/24 20:25 Temperature Source Tympanic 10/21/24 20:25 Pulse 70 10/21/24 22:25 Respiratory Rate 16 10/21/24 22:25 Blood Pressure 142/72 H 10/21/24 22:25 Blood Pressure Mean 95 10/21/24 19:17 Blood Pressure Position Sitting 10/21/24 17:27 Pulse Oximetry 95 10/21/24 22:25 Oxygen Delivery Method Room Air 10/21/24 20:25 Oxygen Flow Rate 0 10/21/24 20:25 Pain Level 10 10/21/24 20:25 Lab/Test Results Lab/Test Results: Laboratory Tests Range/Units 10/21/24 19:15 WBC (4.4-10.8) 10^3/uL 11.29 H RBC (3.93-5.22) 10^6/uL 5.31 H Hgb (11.2-15.7) g/dL 15.7 Hct (36.0-46.0) % 47.9 H MCV (80-95) fL 90 MCH (27.0-33.0) pg 29.6 MCHC (32.0-36.0) % 32.8 RDW (11.7-14.6) % 14.1 Plt Count (130-400) 10^3/uL 260 MPV (8.0-11.0) fL 11.3 H Immature Gran % % 0.3 Neutrophils % % 70.2 Lymphocytes % % 23.6 Monocytes % % 5.3 Eosinophils % % 0.3 Basophils % % 0.3 Nucleated RBC % (0.0-0.3) % 0.0 Absolute Neutrophils (1.2-6.7) 10^3/uL 7.93 H Absolute Lymphocytes (1.2-3.4) 10^3/uL 2.66 Absolute Monocytes (0.1-0.8) 10^3/uL 0.60 Absolute Eosinophils (0.0-0.7) 10^3/uL 0.03 Absolute Basophils (0.0-0.2) 10^3/uL 0.03 ESR (0-30) mm/hr 19 Sodium (136-145) mmol/L 144 Potassium (3.5-5.1) mmol/L 3.6 Chloride (98-107) mmol/L 105 Carbon Dioxide (21.0-32.0) mmol/L 28.7 Anion Gap (3-11) mmol/L 10.3 BUN (7-18) mg/dL 13 Creatinine (0.55-1.02) mg/dL 0.9 Est GFR (CKD-EPI 2020) (mL/min/1.73m2) 67.50 Glucose (74-106) mg/dL 98 Calcium (8.5-10.1) mg/dL 10.1 Magnesium (1.8-2.4) mg/dL 2.3 Total Bilirubin (0.2-1.0) mg/dL 0.62 AST (15-37) U/L 17 ALT (14-59) U/L 22 Alkaline Phosphatase (46-116) U/L 101 Total Protein (6.4-8.2) g/dL 8.5 H Albumin (3.4-5.0) g/dL 4.3 TSH (0.36-3.74) uIU/mL 1.86 Medical Decision Making This 74-year-old female presenting in acute distress, will order CT head and neck given the complex medical history to evaluate for tumor or other lesion. Patient also has a raised smooth papular lesion approximately the size of a dime with central excoriation concerning for possible basal cell carcinoma 1 inch superior to her right oriental orthodox which will need dermatology consult assessment. Patient has labs that are stable in appearance with CT head and neck per radiology interpretation my review does not show evidence of acute abnormality. Patient was given morphine for discomfort and she is appears more comfortable at time of reassessment. Her pulse is improved dramatically and her vitals are stable. I have clinically low suspicion for meningitis or subarachnoid hemorrhage on my assessment today and do not feel an LP is warranted at this time. PTC evidence of a right otitis media so I will attempt to treat patient with antibiotics, steroids, and close outpatient reassessment with ENT. Patient will also be placed on list to establish with pcp return precautions reviewed and pt expressed understanding. Patient brought her paperwork from her prior pancreatic cyst evaluation which took approximately 5 minutes to review information. I also reviewed patient's PDMP, she has been in a number of pain medications and it sounds like she just recently stopped seeing her pain care provider and has not been on oxycodone since July. 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 Quality:SDOH Health Related Social Needs: No Data to Display PFSH All Active Problems (Updated 10/21/24 @ 22:07 by TEMITOPE De León) Scalp lesion (Acute) Tinnitus (Acute) Headache (Acute) Otitis media (Acute) Social History Smoking/Tobacco Use Status: Never Smoking risk assessment performed?: Yes Alcohol Intake: never Drug use: Never Housing: house Do you feel safe at home: No Do you feel safe in your relationship?: No
--- NOTE | 2024-10-23 14:44 | NUR.NOTE ---
pt called requesting to speak with Clarisa LINN about further c/o pain and ear ringing, wanting more MSO4 to be prescribed, educated that the ED doesn't prescribe medication after pt is d/c, educated that she was welcome to come back to ED.
== END 2024-10-21 22:25 | disposition home or self-care (01) ==
PROVIDERS: Emergency Provider Physician Assistant
DX: R51.9 Headache, unspecified (principal); H66.91 Otitis media, unspecified, right ear; H93.11 Tinnitus, right ear; L98.9 Disorder of the skin and subcutaneous tissue, unspecified; I10 Essential (primary) hypertension
CPT/HCPCS: 70491; 80053; 85652; 93005; 96374; 99285; 70460; 83735; 84443; 85025; 93010; 99284; J1100; J3490

== ENCOUNTER 2024-10-25 16:39 | Emergency (ER) | payer MEDICARE, MEDICAID, SELFPAY ==
[2024-10-25] VITALS (7 sets, daily range): BP systolic 121–186; BP diastolic 59–114; PULSE 88–147; RESP 17–18; TEMP 36.4–36.7; O2SAT 97–99
--- NOTE | 2024-10-25 16:45 | RT.EKG_ITS ---
APPROVED REPORT Exam: Resting ECG Reason for Exam: Tachycardia Patient Location: E HR:134 bpm ECG Measurements Heart Rate 134 AXIS MI 144 P 74 QRSd 75 QRS 46 QT 287 T 45 QTc 429 Conclusion Sinus tachycardia...rate> 99 Consider anteroseptal infarct...Q >30mS, dimin R, V1-V2 Sinus tachycardia. When compared to prior 10/21/24 heart rate has increased. WD
--- NOTE | 2024-10-25 17:00 | DI.RAD_ITS ---
Exam(s) XR CHEST 2V PA LATERAL EXAM: XR CHEST 2V PA LATERAL CLINICAL HISTORY: cough TECHNIQUE: 2D digital imaging was performed of the chest. Two images were obtained. PA and lateral views were obtained. COMPARISON: No exams were available for comparison FINDINGS: MEDIASTINUM: Normal. HEART: Normal. PULMONARY VASCULATURE: Normal. LUNGS: Clear. PLEURAL SPACE: No pleural effusion or pneumothorax. BONE:Within normal limits for the patient's age. OTHER FINDINGS:Normal. IMPRESSION: No acute pulmonary findings. DATA REPOSITORY: RADIATION DOSE DELIVERED:
--- NOTE | 2024-10-25 17:02 | ED.GENADUL_ITS ---
Discharge Plan Disposition Patient Disposition: Home Condition: Stable Discharge Details Clinical Impression: COVID-19, Otitis media Primary Care Provider: Unknown,Unknown ED Provider: Tiffany Woodruff Home Meds and New Rx's Prescriptions: New gabapentin 100 mg capsule 100 mg PO TID Qty: 7 0RF Continued amoxicillin-pot clavulanate 875-125 mg tablet 1 tab PO BID Qty: 20 0RF No Action fluconazole 150 mg tablet 150 mg PO ONCE Qty: 1 0RF Discharge Instructions Additional Instructions: A referral has been placed for [facility] for further evaluation into your ear pain. Please take the full course of Augmentin as prescribed, pick it up at the pharmacy tomorrow morning to treat your ear infection. A referral has also been placed to the pain clinic to help you manage your chronic pain. You have been diagnosed with COVID-19. You declined antiviral therapy. Please stay well-hydrated, drinking plenty of fluids throughout the day. Use a humidifier to help moisten your nasal passages. Saline nasal spray may also be helpful. For severe ear pain/headache you may use the gabapentin provided. A prescription has been sent to the pharmacy as well. Take one 100 mg tablet every 8 hours as needed for pain. You may continue using lidocaine patches and taking Tylenol 650 mg every 6 hours for discomfort. You may return to emergency care at any time if you develop new high fevers, episodes of passing out, chest pains/difficulty breathing, vision changes, or if you are very worried and need to be rechecked again immediately. HPI General Date/Time Provider Initiated Documentation: 10/25/24 16:46 . HPI Narrative: Deya is a 74 year old female who presents to the emergency department today for evaluation of right ear pain accompanied by headache and tinnitus. She was evaluated on 10/21/2024, diagnosed with AOM and given prescription for Augmentin. She took the 3 tablets of Augmentin given to her in the ED, but did not go to the pharmacy to slate picker the rest of the prescription because she was not feeling well. She reports the pain has increased since she was seen in the ED moved from the right side of her head to all over her head now with pressure behind her eyes and pain with movement of her eyes. Since last night she has had nasal congestion/postnasal drip with cough. Denies associated fever, vision changes, chest pain, difficulty breathing, nausea/vomiting, abdominal pain, change in bowel function, diarrhea. She does report that she has been urinating more than usual, denies dysuria. Past medical history is significant for pancreatic tumor (noncancerous). She does not currently have a PCP. She is not vaccinated against COVID-19 and is not interested in being vaccinated. Physical exam reassuring. Deya is alert and oriented, appears uncomfortable and anxious, frequently crying during evaluation. She is able to participate with exam with some redirection. PERRL, EOMs intact. Cranial nerves II through XII intact as tested. Full painless range of motion of neck. No tonsillar hypertrophy or posterior oropharyngeal erythema/exudate. No cervical or submandibular lymphadenopathy. Right TM dull and anderson. No pain with manipulation of pinna or protrusion of ear. Left TM pearly anderson, translucent. Slightly tacky tongue. Postnasal drip noted, no trismus. Voice clear. Easy work of breathing, lung sounds clear bilaterally. Normal heart sounds, tachycardia noted. Moving all extremities equally. D/dx includes but is not limited to: Viral illness such as COVID-19, mastoiditis/deep space extension of AOM, intracranial mass/tumor, temporal arteritis I independently interpreted the following tests: COVID/flu significant for positive COVID. CBC, CMP, sed rate all reassuring. CT head and neck unremarkable; asymmetry in lingual tonsils noted by radiologist but this was not observed clinically. History and presentation consistent with COVID-19 infection with acute otitis media. While in the emergency department, Deya received morphine for pain control. Gabapentin given for home use; Deya is can concerned that may make her sleepy, so will take before bed. I did offer Paxlovid, which patient declined. Advised patient to complete course of Augmentin for treatment of AOM. Reviewed discharge instructions with patient, including symptomatic management and red flags indicating need for return to emergency care Related Data Home Medications ?Medication ?Instructions ?Recorded ?Confirmed amoxicillin 875 mg-potassium 1 tab PO BID #20 tabs 10/21/24 10/25/24 clavulanate 125 mg tablet fluconazole 150 mg tablet 150 mg PO ONCE #1 tab 10/21/24 10/25/24 gabapentin 100 mg capsule 100 mg PO TID #7 caps 10/25/24 Previous Rx's ?Medication ?Instructions ?Recorded amoxicillin 875 mg-potassium 1 tab PO BID #20 tabs 10/21/24 clavulanate 125 mg tablet fluconazole 150 mg tablet 150 mg PO ONCE #1 tab 10/21/24 gabapentin 100 mg capsule 100 mg PO TID #7 caps 10/25/24 Allergies Allergy/AdvReac Type Severity Reaction Status Date / Time adhesive tape Allergy unknown Verified 10/25/24 16:44 ciprofloxacin (From Cipro) Allergy unknowm Verified 10/25/24 16:44 General Stated Complaint: Headache MONTY: 3 Review of Systems Narrative: See HPI Exam Const General: cooperative, well developed and anxious Nutritional Appearance: average body habitus Orientation: alert and oriented x3 HENMT Head: normal to inspection Ears: hearing grossly normal bilaterally, TM normal on the left, EAC's normal and TM abnormal dull, scarred and other (appears dull and anderson) General nose exam: external nose normal Face and sinus: normal facial exam Mouth: oral mucosae normal and moist mucous membranes Neck Neck: normal visual inspection, full ROM and no lymphadenopathy Resp Effort & Inspection: normal respiratory effort and able to speak in complete sentences Auscultation: clear to auscultation bilaterally Cardio Rate: regular rate Rhythm: regular rhythm Skin General skin exam: no rashes or lesions noted Neuro General: patient alert, patient oriented x3, gait normal, tone normal, moves all extremities, no meningeal signs, no focal motor deficits and CN's II-XI intact bilaterally Cranial Nerves: CN's II-XI intact bilaterally, PERRL, EOM intact bilaterally, no nystagmus and facial strength normal Cognition: normal cognition Speech: speech normal Gait: normal gait Motor: muscle tone normal throughout Course Vital Signs Vital signs: Vital Signs Temperature 36.4 C 10/25/24 16:41 Pulse 147 H 10/25/24 16:41 Respiratory Rate 18 10/25/24 16:41 Blood Pressure 155/88 H 10/25/24 16:41 Pulse Oximetry 98 10/25/24 16:41 Temperature 36.4 C 10/25/24 16:45 Temperature Source Oral 10/25/24 16:45 Pulse 147 H 10/25/24 16:45 Respiratory Rate 18 10/25/24 16:45 Blood Pressure 155/88 H 10/25/24 16:45 Blood Pressure Position Sitting 10/25/24 16:45 Pulse Oximetry 98 10/25/24 16:45 Oxygen Delivery Method Room Air 10/25/24 16:45 Oxygen Flow Rate 0 10/25/24 16:45 Medical Decision Making Quality:SDOH Health Related Social Needs: No Data to Display PFSH All Active Problems (Updated 10/25/24 @ 20:51 by Tiffany Rascon) COVID-19 (Acute) Scalp lesion (Acute) Tinnitus (Acute) Headache (Acute) Otitis media (Acute) Social History Smoking/Tobacco Use Status: Never Smoking risk assessment performed?: Yes Alcohol Intake: never Drug use: Never Housing: house Do you feel safe at home: No Do you feel safe in your relationship?: No
--- NOTE | 2024-10-25 17:15 | DI.CT_ITS ---
Exam(s) CT HEAD NECK W EXAM: CT HEAD NECK W CLINICAL HISTORY: R ear pain, radiating all over head. eye pressure. TECHNIQUE: Imaging Protocol: Axial computed tomography images with coronal and sagittal reformatted images were created and reviewed. CONTRAST MATERIAL: Intravenous: Omnipaque 350 contrast volume:100 mL COMPARISON: CT CT HEAD NECK W from 10/21/2024 FINDINGS: Ventricles and Extra axial spaces: Normal in size and morphology for the patient's age. Hemorrhage: None. Cerebral parenchyma: Normal. No evidence of an acute territorial infarct. Acute mass effect. Enhancement: No suspicious enhancement. [place] of [place]: Unremarkable. Midline shift: None. Brainstem/Cerebellum: Normal. Calvarium: Normal. Visualized Paranasal sinuses/Mastoids: Clear. The mastoid air cells are clear. The middle ears are c lear. There is no evidence of otitis media. The middle ear ossicles appear symmetric and unremarkab le. There is artifact from the patient's dental work. Orbits and retro-orbital soft tissues: Unremarkable. Nasopharynx: Within normal limits. Oropharynx: There is slight asymmetry seen of the lingual tonsils. The right lingual tonsil is sligh tly larger than the left lingual tonsil. This may reflect a tonsillitis. No focal fluid collection i s seen to suggest an abscess. Hypopharynx: Within normal limits. Larynx: Within normal limits. Retropharyngeal space: Within normal limits. Parotids/submandibular: Within normal limits. Thyroid gland: There is again seen a small nodule in the left thyroid gland. It is too small for fu rther characterization. Lymphadenopathy: There is scattered lymph nodes seen along the level one to level three all measurin g less than 8 mm in short axis diameter which are physiologic in nature. Trachea: Within normal limits. Lung apices: Within normal limits. Bones: Within normal limits for the patient's age. Carotids/Jugular: Within normal limits. Soft tissues: Within normal limits. IMPRESSION: 1. Unremarkable right temporal bones. No evidence of mastoiditis or otitis media. 2. Question of some asymmetry in size of the lingual tonsils, right larger than left. This may be pa tient positioning. An infectious or inflammatory process cannot be entirely excluded. Please correl ate clinically. No focal fluid collection is seen to suggest an abscess.The tonsillar tissues otherw ise unremarkable. 3. No acute intracranial process. No enhancing intracranial lesion. RADIATION DOSE DELIVERED: 2,010.6mGy.cm Total DLP DATA REPOSITORY: All CT scans at this facility are submitted to the National Radiology Data Registry (NRDR) Dose Index Registry (DIR) with the [employer] (ACR). RADIATION OPTIMIZATION: All CT scans at this facility use at least one of these dose optimization te chniques: automated exposure control; mA and/or kV adjustment per patient size (includes targeted exa ms where dose is matched to clinical indication); or iterative reconstruction.
[2024-10-25 17:32] LABS: Abs Immature Grans 0.04 10^3/uL (0.0-0.06); Absolute Basophil Count 0.03 10^3/uL (0.0-0.2); Absolute Eosinophil Count 0.01 10^3/uL (0.0-0.7); Absolute Lymphocyte Count 0.67 10^3/uL (1.2-3.4); Absolute Monocyte Count 0.82 10^3/uL (0.1-0.8); Absolute Neutrophil Count 5.47 10^3/uL (1.2-6.7); Basophils % 0.4 %; Eosinophils % 0.1 %; HCT 49.7 % (36.0-46.0); HGB 16.3 g/dL (11.2-15.7); Immature Grans % 0.6 %; Lymphocytes % 9.5 %; MCH 29.4 pg (27.0-33.0); MCHC 32.8 % (32.0-36.0); MCV 90 fL (80-95); MPV 11.2 fL (8.0-11.0); Monocytes % 11.6 %; Neutrophils % 77.8 %; Platelet Count 239 10^3/uL (130-400); RBC 5.55 10^6/uL (3.93-5.22); RDW-SD 45.7 fL; WBC 7.04 10^3/uL (4.4-10.8)
[2024-10-25 17:33] LABS: ESR 21 mm/hr (0-30)
[2024-10-25] MEDS: MORPHine 4 MG/ML SYR IVP (17:41)
[2024-10-25 17:50] LABS: Influenza A PCR Negative (Negative); Influenza B PCR Negative (Negative); RSV PCR Negative (Negative)
[2024-10-25 17:51] LABS: ALT 21 U/L (14-59); AST 16 U/L (15-37); Albumin 4.4 g/dL (3.4-5.0); Alkaline Phosphatase 107 U/L (46-116); Anion Gap 8.1 mmol/L (3-11); BUN 14 mg/dL (7-18); Bilirubin, Total 0.59 mg/dL (0.2-1.0); CO2 30.9 mmol/L (21.0-32.0); Calcium 10.6 mg/dL (8.5-10.1); Chloride 103 mmol/L (98-107); Estimated GFR 59.49 (mL/min/1.73m2); Glucose 115 mg/dL (74-106); Potassium 3.8 mmol/L (3.5-5.1); Sodium 142 mmol/L (136-145); Total Protein 8.8 g/dL (6.4-8.2)
[2024-10-25 17:51] LABS: Source NASOPHARYNX
[2024-10-25 17:52] LABS: COVID-19 PCR Positive (Negative)
[2024-10-25] MEDS: MORPHine IR 15 MG TAB PO (18:49)
[2024-10-25] MEDS: Omnipaque 350 MG/ML 100 ML BTL IJ (19:31)
[2024-10-25] MEDS: Normal Saline - Diluent 50 ML VIAL IJ (19:32)
[2024-10-25] MEDS: Gabapentin 100 MG CAP PO (20:56)
[2024-10-25] MEDS: Amoxicillin 875/Clav. 125 TAB PO (20:56)
[2024-10-25] MEDS: Amox. 875/Clav. 125, 2 TABS/BTL 1 TAB PO (20:56)
--- NOTE | 2024-10-30 09:57 | NUR.NOTE ---
Patient called stating that she was prescribed antibiotics now has severe diarrhea, feels dehydrated, hasn't eaten in 4 days. Told to return to ED or go to Urgent Care. She stated she needs IV fluids and will return. Nursing Note:
== END 2024-10-25 21:07 | disposition home or self-care (01) ==
PROVIDERS: Emergency Provider Nurse Practitioner Family
DX: U07.1 COVID-19 (principal); H66.91 Otitis media, unspecified, right ear
CPT/HCPCS: 70491; 80053; 85652; 87637; 93005; 96374; 99285; 70460; 71046; 85025; 93010; J2270; J3490

== ENCOUNTER 2024-12-24 02:53 | Outpatient (CLI) | payer MEDICARE, MEDICAID, SELFPAY ==
[2024-12-24 09:36] LABS: Abs Immature Grans 0.05 10^3/uL (0.0-0.06); Absolute Basophil Count 0.04 10^3/uL (0.0-0.2); Absolute Eosinophil Count 0.11 10^3/uL (0.0-0.7); Absolute Lymphocyte Count 2.17 10^3/uL (1.2-3.4); Absolute Monocyte Count 0.54 10^3/uL (0.1-0.8); Absolute Neutrophil Count 4.15 10^3/uL (1.2-6.7); Basophils % 0.6 %; Eosinophils % 1.6 %; HCT 44.7 % (36.0-46.0); HGB 14.4 g/dL (11.2-15.7); Immature Grans % 0.7 %; Lymphocytes % 30.7 %; MCH 30.3 pg (27.0-33.0); MCHC 32.2 % (32.0-36.0); MCV 94 fL (80-95); Monocytes % 7.6 %; Neutrophils % 58.8 %; Platelet Count 283 10^3/uL (130-400); RBC 4.75 10^6/uL (3.93-5.22); RDW-SD 52.5 fL; WBC 7.06 10^3/uL (4.4-10.8)
[2024-12-24 10:00] LABS: Glucose 137 mg/dL (74-106)
== END 2024-12-24 02:54 | disposition home or self-care (01) ==
LOC: LBO 02:53
PROVIDERS: Visit Provider Optometrist
DX: H53.8 Other visual disturbances (principal)
CPT/HCPCS: 36415; 82947; 85025

== ENCOUNTER 2025-01-23 17:00 | Emergency (ER) | payer MEDICARE, MEDICAID, SELFPAY ==
[2025-01-23 17:05] VITALS: BP 172/65; PULSE 76; RESP 18; TEMP 36.7; O2SAT 100
--- NOTE | 2025-01-23 17:13 | ED.GENADUL_ITS ---
Discharge Plan Disposition Patient Disposition: Home Condition: Stable Discharge Details Clinical Impression: Closed fracture of left distal fibula, Contusion of left hip, Contusion of right hand Primary Care Provider: None,None ED Provider: Mat Arthur Home Meds and New Rx's Prescriptions: No Action No Known Home Meds Discharge Instructions Instructions: Minor Contusion ED, Lower Leg Fracture ED Additional Instructions: You were seen in the emergency department for your trip and fall will bring groceries in, you have a nondisplaced small fracture of the left distal fibula, this is a nonweightbearing bone. Please remain in the walking boot and use crutches, you may partially weight-bear. Please follow-up with orthopedics. Please take 1000 mg of Tylenol 3 times per day, you state that you do not tolerate anti-inflammatories but you could try applying [id number] topical Voltaren gel to the area of pain 3 times per day as well as rest, ice, c ompression and elevation often. Please return to the emergency department for any signs of neurovascular compromise, your x-ray of your hip is negative for any fracture and likely you just have a minor contusion similar to your right hand there. Referrals: [facility] [Provider Group] Discharge Data Discharge Date/Time-TO BE ENTERED AT DEPARTURE: 01/23/25 18:36 HPI General Date/Time Provider Initiated Documentation: 01/23/25 17:08 . HPI Narrative: 74 year-old female presents to ED today by POV with inability to walk on L leg, with a chief complaint of L ankle pain from a twisting fall while bringing groceries into her home from the car with onset just prior to arrival. 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 Severity is described as severe. Palliating factors include nothing specific attempted yet. Provoking factors include weight-bearing. Patient is R-leg dominant. Patient not anticoagulated. Related Data Home Medications ?Medication ?Instructions ?Recorded ?Confirmed Unknown [No Known Home Meds] 01/23/25 01/23/25 Allergies Allergy/AdvReac Type Severity Reaction Status Date / Time adhesive tape Allergy unknown Verified 01/23/25 17:08 ciprofloxacin (From Cipro) Allergy unknowm Verified 01/23/25 17:08 General Stated Complaint: Orthopedic MONTY: 4 Review of Systems All systems reviewed & are unremarkable except as noted in HPI and below Exam Narrative Exam Narrative: GENERAL APPEARANCE: Well-nourished, non-toxic, awake and alert, atraumatic, no acute distress. SKIN: Warm, pink, dry, intact, without rashes/lesions/ulcerations. HEAD: Normocephalic, atraumatic, normal hair distribution for gender/age. EYES: Normal conjunctiva, no exudates on lids/lashes. ENT: Nares patent, no circumoral cyanosis, no facial swelling NECK: Supple, trachea midline, painless cervical ROM. LUNGS/CHEST: Non-labored respirations, normal A/P diameter, symmetrical expansion, no chest wall deformity HEART (CV/PV): Regular rate, no peripheral edema, no JVD. ABDOMEN: Soft, non-distended, no guarding. MSK: Normal ROM, no swelling/deformity to bilateral UEs or R LE, moving all extremities without weakness save for L LE, no cyanosis, spine midline without tenderness, normal curvature, left lateral malleolus swelling and bruising, dorsalis pedis pulse 2+, mild tenderness at the left greater trochanter, minor bruise at the thenar eminence of thumb without anatomical snuffbox tenderness, all ranges of motion of right hand intact, strength 5/5, no left knee tenderness NEURO: Mental Status AAOx4 - alert to person, place, time, events No facial droop, no forehead involvement. Motor: No focal weakness - strength 5/5 in bilateral UEs and R LE, proximal and distal, symmetric. Sensory: sensation intact to light touch globally. Gait NT. PSYCH: euthymic, cooperative, pleasant, appropriate speech Course Vital Signs Vital signs: Vital Signs Temperature 36.7 C 01/23/25 17:05 Pulse 76 01/23/25 17:05 Respiratory Rate 18 01/23/25 17:05 Blood Pressure 172/65 H 01/23/25 17:05 Pulse Oximetry 100 01/23/25 17:05 Temperature 36.7 C 01/23/25 17:05 Temperature Source Oral 01/23/25 17:05 Pulse 76 01/23/25 17:05 Respiratory Rate 18 01/23/25 17:05 Blood Pressure 172/65 H 01/23/25 17:05 Blood Pressure Position Sitting 01/23/25 17:05 Pulse Oximetry 100 01/23/25 17:05 Oxygen Delivery Method Room Air 01/23/25 17:05 Oxygen Flow Rate 0 01/23/25 17:05 Pain Level 10 01/23/25 17:05 Medical Decision Making This dictation utilizes [id number] dictation software and may contain unedited grammatical errors. 74 year-old female presents to ED today by POV with inability to walk on L leg, with a chief complaint of L ankle pain from a twisting fall while bringing groceries into her home from the car with onset just prior to arrival. 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 Severity is described as severe. Palliating factors include nothing specific attempted yet. Provoking factors include weight-bearing. Patient is R-leg dominant. Patients' medical history: Negative, otherwise healthy, takes no medications. Family and social history: Lives independently stays fairly active. Pertinent exam findings / vital signs include left lateral malleolus swelling and bruising, dorsalis pedis pulse 2+, mild tenderness at the left greater trochanter, minor bruise at the thenar eminence of thumb without anatomical snuffbox tenderness, all ranges of motion of right hand intact, strength 5/5, no left knee tenderness. Differential / pathologies of concern include fracture, contusion, sprain. Diagnostic studies of: - XR L ankle, XR L hip with pelvis. - XR Hip shows no acute fracture - XR ankle shows non-displaced distal fibula fracture Interventions of: - 1 g p.o. Tylenol, 30 mg IM ketorolac. Walking Boot & Crutches provided. ED Course/Assessment/Plan: 74-year-old female presents after twisting her ankle while bringing groceries in, has a nondisplaced distal fibula fracture, placed in a walking boot and given crutches, recommend she follow-up with orthopedics, counseled on therapeutic Tylenol dosing and RICE therapy, patient states she does not take oral NSAIDs, advised her to use topical Voltaren on the area of pain, strict return criteria for any signs of neurovascular compromise. Findings not consistent with fracture, neurovascular compromise. Disposition of Closed Fracture of Left Distal Fibula, Contusion of Left Hip, Contusion of Right Hand. Patient verbalized understanding of the plan and return to ED criteria and engaged in shared decision making. Medical Records Medical records reviewed: Yes I reviewed the patient's medical records. Imaging Data Radiologic Study: Attestation: I personally reviewed and interpreted this imaging study as follows: Imaging: X-Ray Radiologist's impression: EXAM: XR HIP LT COMPLETE AP PELVIS CLINICAL HISTORY: fall L hip pain; great troch. TECHNIQUE: 2D digital imaging was performed of the left hip. Two views were obtained. AP pelvis and lateral left hip views were obtained. COMPARISON: CR XR ABDOMEN FLAT PLATE from 07/14/2021 FINDINGS: BONES: No acute fracture is present. No bony destructive lesion is seen. JOINTS: No dislocation present. SOFT TISSUE: Normal. There are surgical clips seen in the pelvis. IMPRESSION: No acute fracture or dislocation is identified. If there is continued concern CT scan or MRI should be considered for further evaluation. Radiologic Study #2: Attestation: I personally reviewed and interpreted this imaging study as follows: Imaging: X-Ray Radiologist's impression: EXAM: XR ANKLE LT COMPLETE CLINICAL HISTORY: L lateral malleolar pain TECHNIQUE: 2D digital imaging was performed of the left ankle. Three images were obtained. AP, lateral and oblique views were obtained. COMPARISON: No exams were available for comparison FINDINGS: BONES: There is an acute nondisplaced fracture of the lateral malleolus inferior to the level of the talar dome. No bony destructive lesion is seen. There is an enthesophyte at the posterior calcaneus. JOINTS:The ankle mortise is normally aligned. SOFT TISSUE: There is soft tissue swelling of the ankle particularly laterally. IMPRESSION: Nondisplaced fracture of the distal left fibula inferior to the level of the talar dome. Quality:SDOH Health Related Social Needs: No Data to Display PFSH All Active Problems (Updated 01/23/25 @ 18:14 by TEMITOPE Denis) Contusion of right hand (Acute) Contusion of left hip (Acute) Closed fracture of left distal fibula (Acute) COVID-19 (Acute) Social History Smoking/Tobacco Use Status: Never Smoking risk assessment performed?: Yes Alcohol Intake: never Drug use: Never Housing: house Do you feel safe at home: No Do you feel safe in your relationship?: No
--- NOTE | 2025-01-23 17:15 | DI.RAD_ITS ---
Exam(s) XR HIP LT COMPLETE AP PELVIS EXAM: XR HIP LT COMPLETE AP PELVIS CLINICAL HISTORY: fall L hip pain; great troch. TECHNIQUE: 2D digital imaging was performed of the left hip. Two views were obtained. AP pelvis an d lateral left hip views were obtained. COMPARISON: CR XR ABDOMEN FLAT PLATE from 07/14/2021 FINDINGS: BONES: No acute fracture is present. No bony destructive lesion is seen. JOINTS: No dislocation present. SOFT TISSUE: Normal. There are surgical clips seen in the pelvis. IMPRESSION: No acute fracture or dislocation is identified. If there is continued concern CT scan or MRI should be considered for further evaluation. DATA REPOSITORY: RADIATION DOSE DELIVERED:
[2025-01-23] MEDS: Acetaminophen 500 MG TAB 1000 MG PO (17:21)
[2025-01-23] MEDS: Ketorolac 30 MG/ML VIAL IM (17:21)
--- NOTE | 2025-01-26 18:00 | NUR.NOTE ---
Accessed chart to get the discharge diagnosis for [facility] billing purposes. Nursing Note:
--- NOTE | 2025-02-05 04:56 | NUR.NOTE ---
Accessed patient chart to print provider note to be faxed to [facility] for billing purposes. Nursing Note:
== END 2025-01-23 18:36 | disposition home or self-care (01) ==
PROVIDERS: Emergency Provider Physician Assistant
DX: S82.65XA Nondisplaced fracture of lateral malleolus of left fibula, initial encounter for closed fracture (principal); S70.02XA Contusion of left hip, initial encounter; S60.221A Contusion of right hand, initial encounter; W10.8XXA Fall (on) (from) other stairs and steps, initial encounter; Y93.01 Activity, walking, marching and hiking; Y92.018 Other place in single-family (private) house as the place of occurrence of the external cause
CPT/HCPCS: 96372; 99284; 73502; 73610; 99283; J1885

== ENCOUNTER 2025-02-10 09:54 | Outpatient (CLI) | payer MEDICARE, MEDICAID, SELFPAY ==
--- NOTE | 2025-02-10 09:23 | DI.RAD_ITS ---
Exam(s) XR ANKLE LT COMPLETE EXAM: XR ANKLE LT COMPLETE CLINICAL HISTORY: F/U FRACTURE TECHNIQUE: 2D digital imaging was performed of the left ankle. Three images were obtained. AP, lat eral and oblique views were obtained. COMPARISON: CR XR ANKLE LT COMPLETE from 01/23/2025 FINDINGS: BONES: The area of concern on the initial examination from 01/23/2025 is not present on the current exa mination. No periosteal reaction is seen to suggest healing. No new fracture is identified. No bon y destructive lesion is seen. There is an enthesophyte at the posterior calcaneus. JOINTS:The ankle mortise is normally aligned. SOFT TISSUE: Normal. IMPRESSION: No evidence of a healing fracture seen at this time. Follow-up as clinically appropriate. DATA REPOSITORY: RADIATION DOSE DELIVERED:
== END 2025-02-10 09:55 | disposition home or self-care (01) ==
LOC: DIORS 09:54
PROVIDERS: Visit Provider Student in an Organized Health Care Education/Training Program
DX: S82.832A Other fracture of upper and lower end of left fibula, initial encounter for closed fracture (principal); W01.0XXA Fall on same level from slipping, tripping and stumbling without subsequent striking against object, initial encounter; Y93.01 Activity, walking, marching and hiking
CPT/HCPCS: 99203; 73610